=== PATIENT | female | born 1955 | race African-American/Black ===

== ENCOUNTER 2017-11-09 13:55 | Emergency (ER) | payer SELFPAY ==
[~2017-11-09] VITALS: Ht 167.6 cm; Wt 70.0 kg
[2017-11-09] MEDS ORDERED: TEMA7.5C6 PO (14:02)
[2017-11-09] MEDS ORDERED: SODIUM CHLORIDE 0.9% 1,000 ML IV ONE (14:13)
[2017-11-09] MEDS ORDERED: ONDANSETRON HCL 4MG/2ML VIAL IV ONE (14:15)
[2017-11-09 14:57] LABS: BASOPHILS % 0.3 % (0.0-2.0); EOSINOPHILS % 1.5 % (0.0-5.0); HEMATOCRIT. 35.6 % (36.0-48.0); HEMOGLOBIN. 11.9 g/dL (12.0-16.0); LYMPHOCYTES % 36.1 % (20.0-50.0); MEAN CORPUSCULAR HEMOGLOBIN 29.7 pg (28.0-32.0); MEAN CORPUSCULAR VOLUME 88.5 fL (81.0-99.0); MONOCYTES % 8.5 % (2.0-8.0); NEUTROPHILS % 53.6 % (40.0-76.0); PLATELET 263 x1000/uL (130-400); RED BLOOD CELL COUNT 4.02 mill/uL (4.2-5.4); RED CELL DISTRIBUTION WIDTH 16.2 % (11.6-14.6)
[2017-11-09 15:00] LABS: CHLORIDE 107 mEq/L (98-107)
[2017-11-09 15:03] LABS: PARTIAL THROMBOPLASTIN TIME 29.1 sec (23.4-31.0); PROTHROMBIN TIME 10.6 sec (9.4-11.6)
[2017-11-09 15:05] LABS: ETHANOL BLOOD 236 mg/dL
[2017-11-09 15:23] LABS: *BARBITURATES SCREEN URINE NEGATIVE (NEGATIVE)
[2017-11-09 15:24] LABS: *AMPHETAMINES SCREEN URINE NEGATIVE (NEGATIVE); *BENZODIAZEPINES SCREEN URINE PRESUMTIVE POSITIVE (NEGATIVE); *COCAINE SCREEN URINE NEGATIVE (NEGATIVE); METHADONE URINE SCREEN NEGATIVE (NEGATIVE); OPIATES URINE SCREEN NEGATIVE (NEGATIVE); PHENCYCLIDINE URINE SCREEN NEGATIVE (NEGATIVE)
[2017-11-09 15:25] LABS: CANNABINOID URINE SCREEN NEGATIVE (NEGATIVE)
[2017-11-09] MEDS ORDERED: MIDAZOLAM HCL 2 MG/2 ML VIAL IV ONE (15:45)
[2017-11-09] MEDS ORDERED: MIDAZOLAM HCL 2 MG/2 ML VIAL IM ONE (16:00)
[2017-11-09] MEDS ORDERED: OLANZAPINE 10 MG/VIAL IM ONE (16:00)
[2017-11-09 20:00] LABS: CHLORIDE 108 mEq/L (98-107)
[2017-11-09] MEDS ORDERED: LORAZEPAM 2MG/ML CPJ IM ONE (20:00)
[2017-11-09] MEDS ORDERED: HALOPERIDOL LACTATE 5MG/ML VIAL IM ONE (20:00)
[2017-11-09 20:06] LABS: ETHANOL BLOOD 141 mg/dL
[2017-11-10 13:29] VITALS: BP 124/91
== END 2017-11-10 13:34 | disposition home or self-care (01) ==
LOC: ER 13:55 → EDBD 13:55 → ER 11-10 13:34
DX: F10.129 Alcohol abuse with intoxication, unspecified (principal); G92 Toxic encephalopathy; R00.0 Tachycardia, unspecified; R79.1 Abnormal coagulation profile
CPT/HCPCS: 36415; 80053; 80305; 80307; 80329; 85025; 85610; 85730; 93005; 96361; 96372; 96374; 99285; G0482; J1630; J2060; J2250; J2405; J3490; J7030; Z7610; A4315

== ENCOUNTER 2019-09-24 20:02 | Emergency (ER) | payer MEDICAID ==
[~2019-09-24 20:02] MED LIST: TEMA7.5C6 PO
== END 2019-09-24 20:16 | disposition left against medical advice (07) ==
LOC: ER 20:02
DX: R11.10 Vomiting, unspecified (principal); Z53.21 Procedure and treatment not carried out due to patient leaving prior to being seen by health care provider

== ENCOUNTER 2021-03-07 16:58 | Emergency (ER) | payer OTHER, MEDICAID ==
[~2021-03-07] VITALS: Ht 170.2 cm; Wt 70.0 kg
[2021-03-07] MEDS ORDERED: SODIUM CHLORIDE 0.9% 1000ML BAG (SEPSIS BOLUS) IV ONE (17:30)
[2021-03-07 19:41] LABS: BASOPHILS % 0.3 % (0.0-2.0); EOSINOPHILS % 0.8 % (0.0-5.0); HEMATOCRIT. 35.4 % (36.0-48.0); LYMPHOCYTES % 42.2 % (20.0-50.0); MEAN CORPUSCULAR HEMOGLOBIN 30.6 pg (28.0-32.0); MEAN CORPUSCULAR VOLUME 90.2 fL (81.0-99.0); MEAN PLATELET VOLUME 7.7 fl (7.4-10.4); MONOCYTES % 11.9 % (2.0-8.0); NEUTROPHILS % 44.8 % (40.0-76.0); PLATELET 387 x1000/uL (130-400); RED BLOOD CELL COUNT 3.92 mill/uL (4.2-5.4); RED CELL DISTRIBUTION WIDTH 15.7 % (11.6-14.6)
[2021-03-07 19:48] LABS: CHLORIDE 101 mEq/L (98-107)
[2021-03-07 19:50] LABS: PROTHROMBIN TIME 10.9 sec (9.6-11.0)
[2021-03-07] MEDS ORDERED: CEFTRIAXONE 1 G PREMIX 50 ML IV ONE (21:00)
[2021-03-07 21:08] LABS: CLARITY URINE CLOUDY (CLEAR); COLOR URINE YELLOW (YELLOW); KETONES URINE TRACE (NEGATIVE); LEUKOCYTE ESTERASE URINE 1+ (NEGATIVE); NITRITE URINE NEGATIVE (NEGATIVE); OCCULT BLOOD URINE NEGATIVE (NEGATIVE); PH URINE 5.5 (4.5-8.0); PROTEIN URINE 1+ (NEGATIVE); SPECIFIC GRAVITY URINE 1.023 (1.005-1.030)
[2021-03-07 21:24] LABS: *AMPHETAMINES SCREEN URINE NEGATIVE (NEGATIVE); *BARBITURATES SCREEN URINE NEGATIVE (NEGATIVE); *BENZODIAZEPINES SCREEN URINE PRESUMTIVE POSITIVE (NEGATIVE); *COCAINE SCREEN URINE PRESUMTIVE POSITIVE (NEGATIVE); METHADONE URINE SCREEN NEGATIVE (NEGATIVE)
[2021-03-07 21:26] LABS: OPIATES URINE SCREEN PRESUMTIVE POSITIVE (NEGATIVE)
[2021-03-07 21:27] LABS: CANNABINOID URINE SCREEN NEGATIVE (NEGATIVE); PHENCYCLIDINE URINE SCREEN NEGATIVE (NEGATIVE)
[2021-03-07] MEDS ORDERED: POTASSIUM CHLORIDE 20MEQ TABLET SR PO ONE (21:45)
[2021-03-07 23:44] VITALS: BP 148/76
== END 2021-03-08 00:30 | disposition short-term general hospital (02) ==
LOC: ER 16:58
DX: A41.9 Sepsis, unspecified organism (principal); S06.9X9A Unspecified intracranial injury with loss of consciousness of unspecified duration, initial encounter; N39.0 Urinary tract infection, site not specified; F14.10 Cocaine abuse, uncomplicated; R55 Syncope and collapse; E87.2 Acidosis; I10 Essential (primary) hypertension; F10.10 Alcohol abuse, uncomplicated; F11.10 Opioid abuse, uncomplicated; Y90.6 Blood alcohol level of 120-199 mg/100 ml; F16.10 Hallucinogen abuse, uncomplicated; W01.198A Fall on same level from slipping, tripping and stumbling with subsequent striking against other object, initial encounter; Y93.89 Activity, other specified; Y92.018 Other place in single-family (private) house as the place of occurrence of the external cause
CPT/HCPCS: 36415; 70450; 71045; 80053; 80305; 80320; 81003; 83605; 84145; 84484; 85025; 85610; 87040; 87086; 93005; 99285; J7030; G0480

== ENCOUNTER 2024-10-12 22:13 | Emergency (ER) | payer OTHER, MEDICAID ==
[~2024-10-12] VITALS: Ht 167.6 cm; Wt 69.0 kg
[2024-10-12 22:23] VITALS: O2SAT 99
[2024-10-12 23:17] LABS: CHLORIDE 105 mEq/L (98-107); POTASSIUM 3.7 mEq/L (3.5-5.1); SODIUM 142 mEq/L (136-145)
[2024-10-12 23:18] LABS: CALCIUM 8.3 mg/dL (8.7-10.4); CARBON DIOXIDE 32 mEq/L (21-32)
[2024-10-12 23:22] LABS: CREATININE 0.6 mg/dL (0.6-1.0)
[2024-10-12 23:23] LABS: ETHANOL BLOOD 228 mg/dL (<10); GLUCOSE 87 mg/dL (70-105); UREA NITROGEN BLOOD 10 mg/dL (9-23)
[2024-10-12 23:32] LABS: EOSINOPHILS % 0.5 % (0.0-5.0); HEMATOCRIT. 35.4 % (36.0-48.0); HEMOGLOBIN. 11.9 g/dL (12.0-16.0); MEAN CORPUSCULAR HEMOGLOBIN 30.5 pg (28.0-32.0); MEAN CORPUSCULAR HGB CONC 33.7 g/dL (31.0-37.0); MEAN CORPUSCULAR VOLUME 90.4 fL (81.0-99.0); MEAN PLATELET VOLUME 8.5 fl (7.4-10.4); MONOCYTES % 9.3 % (2.0-8.0); NEUTROPHILS % 72.2 % (40.0-76.0); PLATELET 338 x1000/uL (130-400); RED BLOOD CELL COUNT 3.91 mill/uL (4.2-5.4); RED CELL DISTRIBUTION WIDTH 18.8 % (11.6-14.6); WHITE BLOOD COUNT 10.6 x1000/uL (4.5-11.0)
[2024-10-12 23:37] LABS: TROPONIN I HIGH SENSITIVITY < 4 ng/L (3.0-34)
[2024-10-13 01:41] VITALS: TEMP 36.5
[2024-10-13 02:13] LABS: TROPONIN I HIGH SENSITIVITY < 4 ng/L (3.0-34)
[2024-10-13 04:15] VITALS: BP 139/81; PULSE 88; RESP 19; O2SAT 96
== END 2024-10-13 04:44 | disposition short-term general hospital (02) ==
LOC: ER 22:13
DX: J44.1 Chronic obstructive pulmonary disease with (acute) exacerbation (principal); F10.129 Alcohol abuse with intoxication, unspecified; Y90.7 Blood alcohol level of 200-239 mg/100 ml
CPT/HCPCS: 36415; 71045; 80048; 80320; 83880; 84484; 85025; 93005; 99285; G0480